=== PATIENT | male | born 1950 | race Caucasian/White ===

== ENCOUNTER 2023-01-07 09:25 | Day surgery (SDC) | payer MEDICARE ==
[~2023-01-07] VITALS: Ht 172.7 cm; Wt 104.1 kg
[~2023-01-07 09:25] MED LIST: 00186-0370-20 IH; HCTZ 25MG TAB25 MG PO; IMDUR 30MG30 MG/TAB PO; LASIX 20MG TABL20 MG PO; LIPITOR 40MG TA40 MG PO; LOPRESSOR100 MG PO; LYRICA200 MG PO; MULTI VITAMINS1 TAB PO; PREDNISONE 5MG5 MG PO; PRILOSEC 20MG20 MG PO; PROAIR HFA0.09 MG/AC IH; SPIRIVA RE2.5 MCG/Ac IH; SYNTHROID0.088 MG/T PO; XARELTO20 MG PO; ZEBETA10 MG PO
[2023-01-07] MEDS ORDERED: LOPRESSOR 550 MG/TAB PO (09:49)
[2023-01-07] MEDS ORDERED: ASPIRIN E.C. 8181 MG PO (09:55)
[2023-01-07 10:28] VITALS: BP 126/62; PULSE 65; TEMP 97.6
--- NOTE | 2023-01-07 10:33 | NUR ---
0936 PT TO BAY 5 VIA WHEEL CHAIR, USING HOME O2 AT 3L VIA NC. PT IS ALERT AND ORIENTED, ACCOMPANIED BY HIS . CONSENT REVIEWED AND SIGNED BY PT. IV ESTABLISHED. LR INFUSING VIA GRAVITY AT KVO. CALL LIGHT IN REACH. DECLINED OFFERED BLANKET.
[2023-01-07 11:45] VITALS: BP 116/51; PULSE 72; TEMP 98
[2023-01-07 12:00] VITALS: BP 114/54; PULSE 68
[2023-01-07 12:15] VITALS: BP 115/50; PULSE 70
[2023-01-07 12:30] VITALS: BP 109/59; PULSE 68
--- NOTE | 2023-01-07 12:50 | NUR ---
1145 RETURNS TO ROOM 5 PER CART. AWAKE, ALERT. RESP UNLABORED AT REST. AMBULATES TO RECLINER WITH STANDBY ASSIST. O2/NC. DENIES NAUSEA, ABD PAIN OR DYSPHAGIA. VITAL SIGNS OBTAINED. CALL LIGHT AT SIDE. IN ROOM 1200 DISCHARGE INSTRUCTIONS REVIEWED. PATIENT VERBALIZES UNDERSTANDING. COPY PROVIDED IN DISCHARGE FOLDER 1215 TOL[address] PO WATER WITHOUT NAUSEA. SWALLOWS WITHOUT DIFFICULTY 1220 DR. BONILLA HERE TO VISIT WITH PATIENT 1242 DRESSES WITH ASSIST FROM
== END 2023-01-07 12:52 | disposition home or self-care (01) ==
LOC: SDCO 09:25
DX: K29.60 Other gastritis without bleeding (principal); D12.2 Benign neoplasm of ascending colon; K62.1 Rectal polyp; D50.9 Iron deficiency anemia, unspecified; K57.30 Diverticulosis of large intestine without perforation or abscess without bleeding; K21.9 Gastro-esophageal reflux disease without esophagitis; K31.89 Other diseases of stomach and duodenum; K59.00 Constipation, unspecified; Z87.891 Personal history of nicotine dependence
CPT/HCPCS: J2704; J7120